=== PATIENT | male | born 1960 | race Caucasian/White ===

== ENCOUNTER 2021-09-13 15:07 | Emergency (ER) | payer MEDICARE, OTHER ==
--- NOTE | 2021-09-13 17:32 | XR ---
EXAMINATION TYPE: XR chest 2V DATE OF EXAM: 09/13/2021 5:11 PM COMPARISON: None TECHNIQUE: XR chest 2V Frontal view of the chest. CLINICAL INDICATION:Male, 61 years old with history of fall rib pain; FINDINGS: Lungs/Pleura: There is no evidence of pleural effusion, focal consolidation, or pneumothorax. Pulmonary vascularity: Unremarkable. Heart/mediastinum: Cardiomediastinal silhouette is unremarkable. Musculoskeletal: No acute osseous pathology. Other: Partially ossified left axillary lymph node. IMPRESSION: 1. No acute cardiopulmonary disease/process. 2. No definitive rib fracture identified.
[2021-09-13] MEDS ORDERED: ONDANSETRON ODT 4 MG TAB PO STA (18:52)
[2021-09-13] MEDS ORDERED: ORPHENADRINE 30 MG/ML 2 ML VIAL IM STA (18:52)
[2021-09-13] MEDS ORDERED: predniSONE 50 MG TAB PO STA (18:52)
[2021-09-13] MEDS ORDERED: HYDROmorphone 1 MG/ML 1 ML SYRINGE IM STA (18:52)
--- NOTE | 2021-09-13 19:06 | ED ---
General Adult HPI - General Chief complaint: Fall Stated complaint: Fall-Rib/back pain Time Seen by Provider: 09/13/21 18:30 Source: patient, RN notes reviewed Mode of arrival: wheelchair Limitations: no limitations - History of Present Illness Initial comments: 61-year-old male presents to the emergency department for evaluation of left elbow pain, left anterior upper chest wall pain, and low back pain status post fall from a 6 foot ladder. Patient states he has a history of low back pain and scoliosis and reports his pain worsens with movement since the fall. Denies loss of consciousness, dizziness, headache, neck pain, difficulty breathing, ab dominal pain, nausea, vomiting, diarrhea, dysuria, loss of bowel or bladder control, saddle anesthesia, or footdrop. - Related Data Previous Rx's Medication Instructions Recorded Cyclobenzaprine [Flexeril] 10 mg PO TID PRN #15 tab 09/13/21 Ibuprofen [Motrin] 600 mg PO Q8HR PRN #30 tab 09/13/21 dexAMETHasone [Decadron] 6 mg PO DAILY #10 tablet 09/13/21 Allergies Allergy/AdvReac Type Severity Reaction Status Date / Time No Known Allergies Allergy Verified 09/13/21 21:25 Review of Systems ROS Statement: Those systems with pertinent positive or pertinent negative responses have been documented in the HPI. ROS Other: All systems not noted in ROS Statement are negative. Past Medical History Past Medical History: COPD, Musculoskeletal Disorder Additional Past Medical History / Comment(s): scoliosis Past Surgical History: Hernia Repair Smoking Status: Former smoker Past Alcohol Use History: Occasional Past Drug Use History: Marijuana General Exam - General Exam Comments Initial Comments: Patient is found to be febrile upon initial exam. He denies any known illness or complaints of sickness. Limitations: no limitations (Developed, well-nourished male in no acute distress. Initial temperature 99.5, pulse 88, respirations 16, blood pressure 146/87, pulse ox 96% on room air.) General appearance: alert, in no apparent distress Head exam: Present: atraumatic, normocephalic, normal inspection Eye exam: Present: normal appearance, PERRL, EOMI. Absent: scleral icterus, conjunctival injection, periorbital swelling ENT exam: Present: normal exam, normal oropharynx, mucous membranes moist, TM's normal bilaterally Neck exam: Present: normal inspection, full ROM. Absent: tenderness, meningismus, lymphadenopathy Respiratory exam: Present: normal lung sounds bilaterally, chest wall tenderness (Left upper anterior chest wall tenderness upon palpation; no contusion or abrasion noted. no step off or deformity.). Absent: respiratory distress, wheezes, rales, rhonchi, stridor Cardiovascular Exam: Present: regular rate, normal rhythm, normal heart sounds. Absent: systolic murmur, diastolic murmur, rubs, gallop, clicks GI/Abdominal exam: Present: soft, normal bowel sounds. Absent: distended, tenderness, guarding, rebound, rigid Extremities exam: Present: full ROM, normal capillary refill, other (left shoulder deformity baseline for patient). Absent: tenderness, pedal edema, joint swelling, calf tenderness Back exam: Present: normal inspection, muscle spasm (with repositioning), vertebral tenderness (lumbar vertebral tenderness). Absent: CVA tenderness (R), CVA tenderness (L), paraspinal tenderness Expanded Back exam: Negative Straight Leg Raising: Left, Right Neurological exam: Present: alert, oriented X3, normal gait Psychiatric exam: Present: normal affect, normal mood Skin exam: Present: warm, dry, intact, normal color. Absent: rash Course Vital Signs 09/13/21 09/13/21 09/13/21 16:42 18:22 21:00 Temperature 99.5 F 100.1 F H 98.5 F Pulse Rate 88 69 Respiratory 16 18 Rate Blood Pressure 146/87 158/76 O2 Sat by Pulse 96 99 Oximetry 09/13/21 22:15 Temperature 99.1 F Pulse Rate 75 Respiratory 20 Rate Blood Pressure 142/87 O2 Sat by Pulse 93 L Oximetry - Reevaluation(s) Reevaluation #1: 09/13/21 20:30 Discussed results of labs and imaging. Given patient's history of COPD, he will is offered the monoclonal antibody infusion. I did discuss the risks and benefits associated with this treatment and patient is agreeable to the infusion. 09/13/21 21:30 Patient tolerated infusion without any adverse side effect. He will be discharged home after the specified time period and is advised to follow up with his PCP for recheck. Medical Decision Making - Medical Decision Making This is a 61-year-old male with a past medical history of COPD, scoliosis, and chronic back pain who presents to the emergency department for evaluation and treatment of low back pain and left anterior chest wall/ rib pain status post fall from a 6 foot ladder. Upon exam, patient is well-appearing and in no acute distress. He is found to have an elevated temperature at 101.7. He has no known sick contacts or complaints of illness. He does have pain upon palpation of the left anterior chest wall, though no crepitus or deformity is palpable; no contusions or abrasions. Lumbar vertebral tenderness upon palpation with no associated physical exam findings. Imaging in negative for any acute findings. Laboratory studies are unremarkable with the exception of a positive Covid test. Given his history of COPD, patient is a candidate for them monoclonal antibody infusion to which he was agreeable and tolerated without adverse side effect. He will be discharged to follow up with his PCP for recheck. Instructed to alternate Tylenol and Motrin as needed for body aches from injuries related to fall as well as infection. Prescribed flexeril for back spasms. Decadron for COVID. Return parameters were discussed in detail. Patient verbalizes understanding and agrees with this plan. Attending: Manjit. - Lab Data Result diagrams: 09/13/21 19:35 09/13/21 19:35 Lab Results 09/13/21 09/13/21 09/13/21 Range/Units 19:35 19:35 19:35 WBC 5.5 (3.8-10.6) k/uL RBC 4.31 (4.30-5.90) m/uL Hgb 13.2 (13.0-17.5) gm/dL Hct 40.2 (39.0-53.0) % MCV 93.3 (80.0-100.0) fL MCH 30.6 (25.0-35.0) pg MCHC 32.8 (31.0-37.0) g/dL RDW 14.7 (11.5-15.5) % Plt Count 352 (150-450) k/uL MPV 7.4 Neutrophils % 78 % Lymphocytes % 6 % Monocytes % 8 % Eosinophils % 6 % Basophils % 1 % Neutrophils # 4.3 (1.3-7.7) k/uL Lymphocytes # 0.3 L (1.0-4.8) k/uL Monocytes # 0.4 (0-1.0) k/uL Eosinophils # 0.3 (0-0.7) k/uL Basophils # 0.1 (0-0.2) k/uL Sodium 135 L (137-145) mmol/L Potassium 4.1 (3.5-5.1) mmol/L Chloride 103 (98-107) mmol/L Carbon Dioxide 25 (22-30) mmol/L Anion Gap 7 mmol/L BUN 10 (9-20) mg/dL Creatinine 0.73 (0.66-1.25) mg/dL Est GFR (CKD-EPI)AfAm >90 (>60 ml/min/1.73 sqM) Est GFR (CKD-EPI)NonAf >90 (>60 ml/min/1.73 sqM) Glucose 101 H (74-99) mg/dL Calcium 8.9 (8.4-10.2) mg/dL Total Bilirubin 0.3 (0.2-1.3) mg/dL AST 47 (17-59) U/L ALT 26 (4-49) U/L Alkaline Phosphatase 59 (38-126) U/L Total Protein 6.8 (6.3-8.2) g/dL Albumin 4.0 (3.5-5.0) g/dL Coronavirus (PCR) (Not Detectd) Influenza Type A RNA Not Detected (Not Detectd) Influenza Type B (PCR) Not Detected (Not Detectd) 09/13/21 Range/Units 19:35 WBC (3.8-10.6) k/uL RBC (4.30-5.90) m/uL Hgb (13.0-17.5) gm/dL Hct (39.0-53.0) % MCV (80.0-100.0) fL MCH (25.0-35.0) pg MCHC (31.0-37.0) g/dL RDW (11.5-15.5) % Plt Count (150-450) k/uL MPV Neutrophils % % Lymphocytes % % Monocytes % % Eosinophils % % Basophils % % Neutrophils # (1.3-7.7) k/uL Lymphocytes # (1.0-4.8) k/uL Monocytes # (0-1.0) k/uL Eosinophils # (0-0.7) k/uL Basophils # (0-0.2) k/uL Sodium (137-145) mmol/L Potassium (3.5-5.1) mmol/L Chloride (98-107) mmol/L Carbon Dioxide (22-30) mmol/L Anion Gap mmol/L BUN (9-20) mg/dL Creatinine (0.66-1.25) mg/dL Est GFR (CKD-EPI)AfAm (>60 ml/min/1.73 sqM) Est GFR (CKD-EPI)NonAf (>60 ml/min/1.73 sqM) Glucose (74-99) mg/dL Calcium (8.4-10.2) mg/dL Total Bilirubin (0.2-1.3) mg/dL AST (17-59) U/L ALT (4-49) U/L Alkaline Phosphatase (38-126) U/L Total Protein (6.3-8.2) g/dL Albumin (3.5-5.0) g/dL Coronavirus (PCR) Detected A (Not Detectd) Influenza Type A RNA (Not Detectd) Influenza Type B (PCR) (Not Detectd) - Radiology Data Radiology results: report reviewed, image reviewed X-ray of the lumbar spine was obtained. Report was reviewed in its entirety. I mpression per Dr. Rankin is no acute process. Moderate multilevel disc degeneration with scoliosis changes. Two-view chest x-ray was obtained. Report was reviewed in its entirety. Impression per Dr. Rankin is no acute cardiopulmonary disease/process. No definitive rib fracture identified. Disposition Clinical Impression: Back pain due to injury, COVID-19 Disposition: HOME SELF-CARE Condition: Stable Instructions (If sedation given, give patient instructions): Back Pain (ED), COVID-19 (Coronavirus Disease 2019) (ED) Additional Instructions: For your back pain: Take Motrin for pain. Flexeril is the muscle relaxer. Maintain mobility with frequent ambulation, but rest as needed. For your COVID: Increase intake of fluids. Consider taking Vitamin C, D, and Zinc. You are being prescribed a steroid to help reduce inflammation. Isolate for the next 5 days. Wear a mask out in public for the subsequent 5 days. General instructions: Follow up with your PCP for a recheck on Sunday. This may need to be done via telephone or video visit Return to the emergency department with any new, worsening, or concerning symptoms. Prescriptions: dexAMETHasone [Decadron] 6 mg PO DAILY #10 tablet Cyclobenzaprine [Flexeril] 10 mg PO TID PRN #15 tab PRN Reason: Muscle Spasm Ibuprofen [Motrin] 600 mg PO Q8HR PRN #30 tab PRN Reason: Pain Is patient prescribed a controlled substance at d/c from ED?: No Referrals: Nonstaff,Physician [Primary Care Provider] - 1-2 days Time of Disposition: 22:01
[2021-09-13] MEDS ORDERED: HYDROmorphone 1 MG/ML 1 ML SYRINGE IVP STA (19:14)
[2021-09-13 19:52] LABS: Basophils # (A) 0.1 k/uL (0-0.2); Basophils % (A) 1 %; Eosinophils # (A) 0.3 k/uL (0-0.7); Eosinophils % (A) 6 %; HCT 40.2 % (39.0-53.0); HGB 13.2 gm/dL (13.0-17.5); Lymphocytes # (A) 0.3 k/uL (1.0-4.8); Lymphocytes % (A) 6 %; MCH 30.6 pg (25.0-35.0); MCHC 32.8 g/dL (31.0-37.0); MCV 93.3 fL (80.0-100.0); Mean Platelet Volume 7.4; Monocytes # (A) 0.4 k/uL (0-1.0); Monocytes % (A) 8 %; Neutrophils # (A) 4.3 k/uL (1.3-7.7); Neutrophils % (A) 78 %; Platelet Count 352 k/uL (150-450); RBC 4.31 m/uL (4.30-5.90); RDW 14.7 % (11.5-15.5); WBC 5.5 k/uL (3.8-10.6)
[2021-09-13 20:07] LABS: ALT 26 U/L (4-49); AST 47 U/L (17-59); African American GFR (CKD) >90 (>60 ml/min/1.73 sqM); Alkaline Phosphatase 59 U/L (38-126); Anion Gap 7 mmol/L; Blood Urea Nitrogen 10 mg/dL (9-20); Calcium 8.9 mg/dL (8.4-10.2); Carbon Dioxide 25 mmol/L (22-30); Chloride 103 mmol/L (98-107); Glucose 101 mg/dL (74-99); Non-African American GFR(CKD) >90 (>60 ml/min/1.73 sqM); Potassium 4.1 mmol/L (3.5-5.1); Sodium 135 mmol/L (137-145); Total Bilirubin 0.3 mg/dL (0.2-1.3); Total Protein 6.8 g/dL (6.3-8.2)
--- NOTE | 2021-09-13 20:11 | XR ---
EXAMINATION TYPE: XR lumbar spine 2 or 3V DATE OF EXAM: 09/13/2021 8:01 PM INDICATION: Patient age:Male; 61 years old; Reason for study: low back pain s/p fall from ladder COMPARISON: None TECHNIQUE: Frontal, lateral and coned in L5-S1 lateral views of the spine. FINDINGS: There is scoliosis changes apex L3. There is multilevel disc degeneration changes with disc space narrowing. Osseous structures are grossly intact. No evidence of acute process within the visu alized structures. IMPRESSION: 1. No acute process. 2. Moderate multilevel disc degeneration with scoliosis changes.
[2021-09-13] MEDS ORDERED: SODIUM CHLORIDE 0.9% 1,000 ML IV STA (20:24)
[2021-09-13] MEDS ORDERED: BEBTELOVIMAB (EUA) 175 MG/2 ML VIAL IV ONE (21:00)
[2021-09-13 22:19] VITALS: BP 142/87; PULSE 75; RESP 20; TEMP 99.1
== END 2021-09-13 22:15 | disposition home or self-care (01) ==
LOC: EC 15:07
DX: S39.92XA Unspecified injury of lower back, initial encounter (principal); U07.1 COVID-19; J44.9 Chronic obstructive pulmonary disease, unspecified; Z87.891 Personal history of nicotine dependence; W11.XXXA Fall on and from ladder, initial encounter
CPT/HCPCS: 36415; 80053; 85025; 87502; 87635; 72100; 71046; 96374; 96361; 99284; J1170; J7512; Q0222